=== PATIENT | male | born 1990 | race Caucasian/White ===

== ENCOUNTER 2017-01-14 19:02 | Inpatient (IN) | payer OTHER ==
[~2017-01-14] VITALS: Ht 177.8 cm; Wt 59.0 kg
[2017-01-14 20:00] VITALS: BP 117/76
--- NOTE | 2017-01-14 20:00 | NUR ---
INTAKE ASSESSMENT BP: 117/76, HR:73, RR:16, SpO2:95%, T:98, Pt reports right shoulder pain 5/10. Pt is in stable condition and able to be admitted on the unit. Unit protocols regarding medications and vital signs Q4H were explained. Pt verbalized understanding. Will continue admission upon arrival on the unit.
--- NOTE | 2017-01-14 21:00 | NUR ---
ADMISSION NOTE COWS: 1, CIWA:5 Pt arrived ambulatory from [facility] Intake to the third floor accompanied by a DECK SCALER at 2016. Pt is a 26 year old male patient admitted on 01/14/17 for Benzodiazepine and Heroin dependency. Pt is full code with allergy to Zicor. Pt reports a PMHx of anxiety, depression and left shoulder surgery in December 2014. He has been smoking cigarettes for 11 years. At the rate of one pack daily. He reports a seizure a few years ago but is unable to recall if the seizure was related to withdrawal. He reports having a PCP named Dr. Velasquez located in [place], [place]. He brought in home medications of Gabapentin 300 mg TID, Seroquel 100 mg at bedtime, and Ibuprofen 600 mg. Medications have been reconciled. He reports his last sobriety was for 70 days which started middle of October and ended 3 weeks ago. His last detox was at [facility] in [place] in October 2016. He reports living in sober living called [facility] in [facility]. He states that he is here for Opiate withdrawal and describes his current use as: 1.Xanax 2 mg PO x 4 days. Last dose: 01/13/17 2. Heroin IV 0.5 gram daily x 3 weeks Last dose: 0.5 gram IV on 01/14/17 He describes his withdrawal symptoms as sweating, muscle aches, diarrhea, nausea, chills and hot sweats. Upon assessment, pt is alert and oriented x4, calm and cooperative. Speech is clear and audible. Heart rate is regular. Pt denies chest pain or SOB. PERRLA, breathing even and unlabored, lung sounds clear. Abdomen is soft and non-distended, bowel sounds present in all quadrants. Last BM 01/13/17. Pt reports that BM is regular. Pt noted with right shoulder abrasion. No drainage or bleeding noted. Picture taken and placed in chart. MD made aware of admission. Pt oriented to room and unit. Pt is safe with bed locked in lowest position, side rails up x2 and call light within reach. Will monitor.
[2017-01-14 21:18] LABS: BASOPHILS # (AUTO) 0.1 K/uL (0.0-8.0); BASOPHILS % (AUTO) 0.8 % (0.0-2.0); EOSINOPHILS # (AUTO) 0.2 K/uL (0.0-0.7); EOSINOPHILS % (AUTO) 3.4 % (0.0-7.0); HEMATOCRIT 43.4 % (40-50); HEMOGLOBIN 14.6 G/DL (14.0-18.0); LYMPHOCYTES # (AUTO) 1.7 K/UL (0.8-4.8); LYMPHOCYTES % (AUTO) 25.8 % (20.5-51.5); MEAN CORPUSCULAR HGB CONC 34 g/dL (32.0-37.0); MEAN CORPUSCULAR VOLUME 89.3 FL (82.0-92.0); MONOCYTES # (AUTO) 0.3 K/UL (0.1-1.30); NEUTROPHILS # (AUTO) 4.2 K/UL (1.8-8.9); PLATELET COUNT (AUTO) 205 K/UL (150-450); RED BLOOD CELL COUNT(AUTO) 4.86 MIL/UL (4.7-6.1); WHITE BLOOD COUNT (AUTO) 6.5 K/UL (4.0-11.2)
[2017-01-14 21:37] LABS: ALANINE AMINOTRANSFERASE 19 U/L (16-63); ALKALINE PHOSPHATASE 83 U/L (50-136); AMYLASE 44 U/L (25-115); ASPARTATE AMINOTRANSFERASE 16 U/L (15-37); BILIRUBIN,TOTAL 0.8 mg/dL (0.2-1.0); CARBON DIOXIDE 32 mmol/L (21-32); CHLORIDE 101 mmol/L (98-107); GLUCOSE 88 mg/dL (74-106); LIPASE 79 U/L (73-393); MAGNESIUM 2.1 mg/dL (1.8-2.4); POTASSIUM 3.4 mmol/L (3.5-5.1); TOTAL PROTEIN, SERUM 7.5 g/dL (6.4-8.2); UREA NITROGEN, BLOOD 13 mg/dL (7-18)
[2017-01-14 21:39] LABS: ETHANOL < 3 MG/DL (0-0); THYROID STIMULATING HORMONE 1.403 mIU/mL (0.358-3.740)
[2017-01-15] VITALS: BP 102/64
[2017-01-15] MEDS ORDERED: QUET100T PO (01:00)
[2017-01-15] MEDS ORDERED: CITA40TA22 PO (01:00)
[2017-01-15] MEDS ORDERED: GABA-534 PO (01:00)
[2017-01-15] MEDS ORDERED: IBUP-1955 PO (01:00)
[2017-01-15 04:00] VITALS: BP 109/69
--- NOTE | 2017-01-15 04:00 | NUR ---
COWS DEFERRED 0400 COWS deferred d/t pt lying in bed with eyes closed noted to be asleep. Respirations 16, breathing even and unlabored. Safety measures in place. Will monitor.
--- NOTE | 2017-01-15 07:10 | NUR ---
END OF SHIFT Pt is a 26 year old male patient admitted on 01/14/17 for Benzodiazepine and Heroin dependency. Pt is full code with allergy to Zicor. Pt reports a PMHx of anxiety, depression and left shoulder surgery in December 2014. He did not receive or request PRN medications. Pt is compliant with care and treatment. He remains alert and oriented x4, breathing is even and unlabored. Safety measures in place. Endorsed to oncoming shift.
[2017-01-15 08:00] VITALS: BP 101/60
--- NOTE | 2017-01-15 08:20 | NUR ---
START OF SHIFT: RECEIVED PT A/O X 4. HE PRESENTS WITH ANXIOUS MOOD AND AFFECT.HE C/O BODY ACHES,SWEATS,CHILLS, SEVERE ANXIETY,RESTLESSNESS AND IRRITABILITY.COWS 13. PRN VALIUM GIVEN CIWA 7. WILL MONITOR EFFECTIVENESS OF PRN MED. ENCOURAGED REST AND FLUIDS TODAY. PPD PLANTED TO LFA. WILL CONTINUE TO MONITOR AND MANAGE S/S OF W/D.
--- NOTE | 2017-01-15 08:20 | NUR ---
PRN SUBUTEX 4MG SL GIVEN FOR COWS 13 .
[2017-01-15 08:34] LABS: *AMPHETAMINE, URINE NEGATIVE (NEGATIVE); *BARBITURATE, URINE NEGATIVE (NEGATIVE); *CANNABINOID, URINE NEGATIVE (NEGATIVE); *COCCAINE, URINE NEGATIVE (NEGATIVE); *OPIATE, URINE POSITIVE (NEGATIVE); *PHENCYCLIDINE SCREEN,URINE NEGATIVE (NEGATIVE)
--- NOTE | 2017-01-15 08:55 | NUR ---
PT STATES SUBUTEX WAS EFFECTIVE. COWS 7.
--- NOTE | 2017-01-15 09:40 | NUR ---
VALIUM 5MG PO PRN EFFECTIVE CIWA NOW 3.
[2017-01-15 12:00] VITALS: BP 100/61
[2017-01-15 16:00] VITALS: BP 105/65
--- NOTE | 2017-01-15 18:42 | NUR ---
END OF SHIFT: PT WAS STARTED ON MODIFIED ATIVAN AND SUBUTEX TAPER. HE WAS GIVEN PRN SUBUTEX AND VALIUM PRN THIS AM BEFORE TAPERS STARTED AND EFFECTIVE FOR C/O ANXIETY,CHILLS,BODY ACHES,SWEATS,AND RESTLESSNESS. LAST COWS 5 CIWA 3. HE WAS COMPLIANT WITH REST AND FLUIDS TODAY. WILL PASS SHIFT REPORT TO ONCOMING NIGHT NURSE.
--- NOTE | 2017-01-15 19:33 | NUR ---
Start of shift Report received from AM nurse. Patient is a 26 year old male admitted to [facility] on 01-14-17 for Benzo and Opiate Detox. HE is on a modified Subutex taper, and 4 day Ativan taper. His vital signs have remained stable. HE has moderate anxiety and history of depression. Denies current SI or HI. Patient up on unit and attending groups. He is a full code, on a regular diet, and has an allergy to Zicor. Stable condition noted at change of shift. Safety measures in place. Fall and seizure precautions, Last known seizure a few year ago. Side rails up x 2, Bed locked in lowest position, call light within reach of patient. Last CIWA3, COWS 7.
[2017-01-15 20:00] VITALS: BP 123/77
[2017-01-16] VITALS: BP 127/74
--- NOTE | 2017-01-16 04:06 | NUR ---
CIWA/COWS deferred. VITAL SIGNS refused Patient refused Vital signs at 0400. Patient resting comfortably in bed. Breathing even and unlabored. Respirations 16. CIWA/COWS deferred for sleep
--- NOTE | 2017-01-16 06:56 | NUR ---
End of Shift Note: Patient is a 26 year old male admitted to [facility] on 01-14-17 for Benzo and Opiate detox. Patient has been using Xanax 1 bar daily as well as Heroin IV 0.5g daily prior to admission. He is on fall and seizure precautions. Past medical history includes: Anxiety, Depression, and one known seizure a few years ago. He is a full code, on a regular diet, with allergy to Zicor. He is on a modified Subutex taper, and a 4 day Ativan taper. Mood stable. His vital signs at 2000: BP 123/77, P 98, R 22, SPO2 100% on RA, T 99.0. COWS 8, CIWA 7. Vital signs at 0000 BP 127/74, P 98, R 16, SPO2 99% on RA, CIWA 4, COWS 12. Patient tolerating diet and fluids. Slept a total of 3 hours. Intake 1595 ml output 1 BM, 2 voids. Safety measures in place. Bed Locked and in lowest position, call light within reach. Report to AM nurse.
[2017-01-16 07:16] LABS: MAGNESIUM 2.1 mg/dL (1.8-2.4); POTASSIUM 4.3 mmol/L (3.5-5.1)
[2017-01-16 08:00] VITALS: BP 118/82
--- NOTE | 2017-01-16 08:01 | NUR ---
START OF SHIFT: RECEIVED PT A/O X 4. HE PRESENTS WITH ANXIOUS MOOD AND AFFECT.HE C/O BODY ACHES,SWEATS,CHILLS, ANXIETY and RESTLESSNESS COWS 6 CIWA 4. HE STATES HE SLEPT TERRIBLE AND ONLY GOT 3 HRS OF SLEEP. OFFERED SUPPORT.ENCOURAGED INCREASED FLUIDS TO ASSIST IN FACILITATING DETOX PROCESS. WILL CONTINUE TO MONITOR AND MANAGE S/S OF W/D.
[2017-01-16 12:00] VITALS: BP 120/76
[2017-01-16 12:10] LABS: HEPATITIS B SURFACE AG Negative (Negative)
[2017-01-16 16:00] VITALS: BP 137/74
--- NOTE | 2017-01-16 19:06 | NUR ---
END OF SHIFT: PT ON ATIVAN AND SUBUTEX TAPER. HE C/O ANXIETY,BODY ACHES,SWEATS,AND RESTLESSNESS AND STATES HE DID NOT SLEEP LAST NIGHT. LAST COWS 5 CIWA 3. HE WAS COMPLIANT WITH MEDS AND ATTENDED GROUPS TODAY.WILL PASS SHIFT REPORT TO ONCOMING NIGHT NURSE.
--- NOTE | 2017-01-16 19:48 | NUR ---
Start of shift Report received from AM nurse. Patient is a 26 year old male admitted to Health system on 01-14-17 for Benzo and Opiate Detox. He remains on a modified Subutex taper, and 4 day Ativan taper. His vital signs have remained stable. He has history of anxiety and history of depression. Denies current SI or HI. Patient sleeping at change of shift. Received no PRN medication during day shift. Last COWS 5 CIWA 3. He is a full code, on a regular diet, and has an allergy to Zicor. Safety measures in place. Fall and seizure precautions in place.Side rails up x 2, Bed locked in lowest position, call light within reach of patient.
[2017-01-16 20:00] VITALS: BP 133/74
--- NOTE | 2017-01-16 21:08 | NUR ---
PRN MEDICATION Patient received Benadryl 50 mg Po at 2107 for c/o insomnia. Effect pending
--- NOTE | 2017-01-16 22:09 | NUR ---
Reassessment of Partient Patient reassessed one hour after PRN Benadryl 50 mg given for sleep. Patient still awake, but states he is beginning to feel tired. Will continue to monitor.
--- NOTE | 2017-01-17 | NUR ---
Vital signs refused Patient in bed with eyes closed at 0000 refused vital signs. Breathing even and unlabored. respirations 18. COWS/CIWA deferred for sleep
--- NOTE | 2017-01-17 04:00 | NUR ---
Vital signs refused Patient in bed with eyes closed at 0400. Patient refused vital signs. Breathing even and unlabored. respirations 16. COWS/CIWA deferred for sleep
--- NOTE | 2017-01-17 06:50 | NUR ---
End of Shift Note: Report given to AM nurse Patient is a 26 year old male admitted to [facility] on 01-14-17 for Benzo and Opiate detox. Patient has been using Xanax 1 bar daily as well as Heroin IV 0.5g daily prior to admission. He is on fall and seizure precautions. Past medical history includes: Anxiety, Depression, and one known seizure a few years ago. He is a full code, on a regular diet, with allergy to Zicor. He is on a modified Subutex taper, and a 4 day Ativan taper. Mood stable. Reports having a good day, speaking to his mother, and states it feels a weight was lifted. His vital signs at 1999: BP 133/74, P 92, R 18, SPO2 99% on RA, T 97.8 COWS 5, CIWA 6. Patient tolerating diet and fluids. Slept a total of 5 hours. Intake 1392ml output 2 voids[address] Safety measures in place. Bed Locked and in lowest position, call light within reach.
--- NOTE | 2017-01-17 07:29 | NUR ---
BEGINNING OF SHIFT Patient endorsement report received from night nurse nurse, all pertinent information discussed. patient is a 26 year old male with admitting Dx: Opiate/BZO dependence. Patient admitted on 01/14/2017, patient with past medical history: anxiety, depression and seizure ( few years ago) . patient currently under close observation ongoing, 4 day Ativan taper and modified Subutex as ordered. Patient with right shoulder abrasion. Per night nurse patient received PRN: Benadryl, medication effective, with last ciwa score of: 6 and last cow score of: 5. Patient received awake, alert and oriented x4, educated regarding plan of care for the day and medication regimen. Safety measures in place. call light kept with in reach. fall and seizure precautions observed and in place, will continue to monitor closely. safety measures in place.
[2017-01-17 08:23] VITALS: BP 127/74
[2017-01-17 13:45] VITALS: BP 120/65
[2017-01-17 17:17] VITALS: BP 101/71
--- NOTE | 2017-01-17 18:56 | NUR ---
END OF SHIFT Patient alert and oriented x4, vital signs were stable during shift. Patient compliant with therapeutic plan of care. Patient with admitting Dx: opiate/ETOH dependence. Patient continues on modified Subutex taper and 4 day Ativan taper as ordered, well tolerated no ASE noted. Encouraged adequate PO fluid intake as tolerated. 0900 assessment patient presented with: heart rate of 94, c/o chills, mild bone and joint aches, stomach cramps, tremors that can be felt but not seen, mild anxiety, barely sweating, and mild [id number] with cow score of: 7 and ciwa score of: 7; 1300 assessment patient presented with: heart rate of 85, c/o chills, tremors that can be felt but not seen, mild anxiety, barely sweating and mild agitation with cow score of: 4 and ciwa score of: 4; 1700 assessment patient presented with: heart rate of 97, c/o chills, tremors that can be felt but not seen, mild anxiety, barely sweating and mild agitation with cow score of: 4 and ciwa score of: 4 Patient denies any SI/HI. Encouraged to attend group therapies/sessions to learn new coping skills to prevent relapse. Patients safety measures in place. Call light kept with in each. Will continue to monitor closely. Patient endorsed to formula mixer nurse, all pertinent information discussed.
--- NOTE | 2017-01-17 19:30 | NUR ---
START OF SHIFT Pt is a 26 y/o male admitted for OPIATE/BENZO dependency.Patient alert and oriented x4, vital signs were stable during day shift,Pt is allergic to Zicor,full code status,regular diet.Pt received in a stable condition, has been compliant with therapeutic plan of care. Pt continues on modified Subutex taper and 4 day Ativan taper as ordered, well tolerated no A/R noted. PO fluids encouraged as tolerated.Last COWS score of: 4 and CIWA score of: 4 at 1600.Patient denies any SI/HI.All safety measures in place. Call light kept within each. Will continue to monitor closely.
[2017-01-17 20:00] VITALS: BP 113/75
--- NOTE | 2017-01-17 23:34 | NUR ---
PRN BENADRYL GIVEN ORDERED FOR C/O INSOMNIA.WILL MONITOR.
[2017-01-18] VITALS: BP 111/75
--- NOTE | 2017-01-18 00:34 | NUR ---
PRN F/U PRN EFFECTIVE.PT IS RESTING IN BED WITH EYES CLOSED,NO S/S DISTRESS NOTED.
[2017-01-18 04:00] VITALS: BP 102/72
--- NOTE | 2017-01-18 06:38 | NUR ---
END OF SHIFT Pt is a 26 y/o male admitted for OPIATE/BENZO dependency.Patient alert and oriented x4.Pt is allergic to Zicor,full code status,regular diet. Pt continues on modified Subutex taper and 4 day Ativan taper as ordered, well tolerated no A/R noted. PO fluids encouraged as tolerated.Last COWS score of: 2 and CIWA score of: 1 at 0400.PRN Benadryl was given with good effect.Pt slept 5 hrs,fluid intake was 500 mls,voided x 1,b/m x 1.Patient denies any SI/HI.All safety measures in place. Call light kept within each. Will continue to monitor closely.
--- NOTE | 2017-01-18 07:24 | NUR ---
BEGINNING OF SHIFT Patient endorsement report received from hogshead roller nurse, all pertinent information discussed. patient is a 26 year old male with admitting Dx: Opiate/BZO dependence. Patient admitted on 01/14/2017, patient with past medical history: anxiety, depression and seizure ( few years ago) . patient currently under close observation ongoing, 4 day Ativan taper and modified Subutex as ordered. Patient with right shoulder abrasion. Per hogshead roller patient received PRN: Benadryl, medication effective, patient slept for 5 hours, with last ciwa score of: 1 and last cow score of: 2. Patient received awake, alert and oriented x4, educated regarding plan of care for the day and medication regimen. Safety measures in place. call light kept with in reach. fall and seizure precautions observed and in place, will continue to monitor closely. safety measures in place.
[2017-01-18 08:07] VITALS: BP 114/65
[2017-01-18 13:04] VITALS: BP 123/79
[2017-01-18 17:15] VITALS: BP 104/65
--- NOTE | 2017-01-18 18:57 | NUR ---
START OF SHIFT NOTE: Patient is a 26 year old male admitted to [facility] for Benzodiazepines and Opioid dependence continue $ day Ativan and Modified Subutex Taper, tolerated wee without ASE. Patient remains compliant with therapy, medications, and diet regime. Patient reports allergy to Zicor, is on Full Code, Regular diet, Fall and Seizure Precautions. PMH: Anxiety, Depression, Seizures Hx "few years ago", Substance abuse. Patient reports Substance use: "Xanax 1 bar every day since 01/10/2017. Last used 1 bar on 01/13/17". "Heroin via IV 0.5 gram last three weeks. Last used 0.5 gram on 01/14/17". Patient reports recent hospitalizations/treatment Hx: "[facility]ia [facility] in October,". Upon endorsement, patient is alert and oriented x4, speech is soft and clear. Patient is cooperative. COWS 4, CIWA 4. Patient presented with anxiety, agitation, nervousness, tremors that can be felt, sweating, and restlessness. Patient reports pain level "0/10" by adult pain scale. Respirations are unlabored and even. Lung Sounds is clear bilaterally. Heart rate is regular, no murmur noted. Abdomen is soft and non-tender. Bowel Sounds are active. Skin is warm and dry to touch. Patient has healed Right shoulder abrasion. Patient attended activities group therapy. Encouraged fluid intake as tolerated. All needs met. Safety measures in the pace. Call light within reach, bed locked and the lowest position, padded rails up bilaterally. Will continue to monitor closely. Report received from day shift nurse. Addendum: 01/19/17 at 0518 by OZ SEGOVIA RN tolerated well without ASE
--- NOTE | 2017-01-18 18:57 | NUR ---
END OF SHIFT Patient alert and oriented x4, vital signs were stable during shift. Patient compliant with therapeutic plan of care. Patient with admitting Dx: opiate/ETOH dependence. Patient continues on modified Subutex taper and 4 day Ativan taper as ordered, well tolerated no ASE noted. Encouraged adequate PO fluid intake as tolerated. During shift patient administered one time dose of clonidine as per MD orders, medication was effective, patient received no PRN medications. 0900 assessment patient presented with: tremors that can be felt but not seen, and mild anxiety with cow score of: 2 and ciwa score of: 2; 1300 assessment patient presented with: anxiety with cow score of: 3 and ciwa score of: 4; 1700 assessment patient presented with: mild anxiety with cow score of: 1 and ciwa score of: 1. Patient denies any SI/HI. Encouraged to attend group therapies/sessions to learn new coping skills to prevent relapse. Patients safety measures in place. Call light kept with in each. Will continue to monitor closely. Patient endorsed to production supervisor off shift nurse, all pertinent information discussed.
[2017-01-18 20:00] VITALS: BP 123/80
[2017-01-19] VITALS: BP 119/71
[2017-01-19 04:00] VITALS: BP 102/63
--- NOTE | 2017-01-19 07:10 | NUR ---
END OF SHIFT NOTE: Patient is a 26 year old male admitted to [facility] for Benzodiazepines and Opioid dependence continue 4 day Ativan and Modified Subutex Taper, tolerated well without ASE. Patient remains compliant with therapy, medications, and diet regime. Patient reports allergy to Zicor, is on Full Code, Regular diet, Fall and Seizure Precautions. PMH: Anxiety, Depression, Seizures Hx "few years ago", Substance abuse. Patient reports Substance use: "Xanax 1 bar every day since 01/10/2017. Last used 1 bar on 01/13/17". "Heroin via IV 0.5 gram last three weeks. Last used 0.5 gram on 01/14/17". Patient reports recent [facility] H[facility]. COWS 2 @0400, CIWA 2 @0400. Patient presented with anxiety, agitation, nervousness, tremors that can be felt, sweating, and restlessness. VS @ 0400: T: 98.1, BP: 102/63, HR:69, RR:16, RA O2Sat: 97%. Pain level: "0/10". Respirations are unlabored and even. Skin is warm and dry to touch. Patient has healed Right shoulder abrasion. Patient attended activities group therapy. Encouraged fluid intake as tolerated. No PRN Medications administrated during my shift. Patient slept 6 hours, intake 1,500 ml, voided x2. All needs met. Safety measures on place. Call light within reach, bed in lowest position and locked, padded rails up bilaterally. Patient endorsed to day shift nurse.
--- NOTE | 2017-01-19 07:35 | NUR ---
BEGINNING OF SHIFT Patient endorsement report received from emergency department manager nurse, all pertinent information discussed. patient is a 26 year old male with admitting Dx: Opiate/BZO dependence. Patient admitted on 01/14/2017, patient with past medical history: anxiety, depression and seizure ( few years ago) . patient currently under close observation ongoing, 4 day Ativan taper and modified Subutex as ordered. Patient with right shoulder abrasion. Per emergency department manager patient received no PRN medications. patient slept for 6 hours, with last ciwa score of: 2 and last cow score of: 2. Patient received awake, alert and oriented x4, educated regarding plan of care for the day and medication regimen. Safety measures in place. call light kept with in reach. fall and seizure precautions observed and in place, will continue to monitor closely. safety measures in place.
[2017-01-19 08:34] VITALS: BP 96/67
[2017-01-19 14:00] VITALS: BP 131/74
[2017-01-19] MEDS ORDERED: IBUP-1953 PO (16:48)
[2017-01-19] MEDS ORDERED: HYDR-3895 PO (16:48)
[2017-01-19] MEDS ORDERED: BACL20TA PO (16:48)
[2017-01-19] MEDS ORDERED: DICY20TA28 PO (16:48)
[2017-01-19] MEDS ORDERED: CLON0.1T14 PO (16:48)
[2017-01-19] MEDS ORDERED: GABA-534 PO (16:48)
[2017-01-19] MEDS ORDERED: DIPH50CA37 PO (16:48)
[2017-01-19 17:23] VITALS: BP 128/71
--- NOTE | 2017-01-19 18:55 | NUR ---
END OF SHIFT Patient alert and oriented x4, vital signs were stable during shift. Patient compliant with therapeutic plan of care. Patient with admitting Dx: opiate/ETOH dependence. Patient continues on modified Subutex taper and 4 day Ativan taper as ordered, well tolerated no ASE noted, patient completed tapers during shift, last administration of detox medications were administered this morning, patient is scheduled to be discharged to [facility] tomorrow morning, noted self motivated towards sobriety. Encouraged adequate PO fluid intake as tolerated. 0900 assessment patient presented with: mild bone and joint aches, and mild anxiety with cow score of: 2 and ciwa score of: 1; 1300 assessment presented with: mild bone and joint aches, and mild anxiety with cow score of:2 and ciwa score of: 1; 1700 assessment patient presented with: mild anxiety with cow score of: 1 and ciwa score of: 1. Patient denies any SI/HI. Encouraged to attend group therapies/sessions to learn new coping skills to prevent relapse. Patients safety measures in place. Call light kept with in each. Will continue to monitor closely. Patient endorsed to date night sitter nurse, all pertinent information discussed.
[2017-01-19 20:00] VITALS: BP 112/73
--- NOTE | 2017-01-19 20:00 | NUR ---
Start of shift Px Received 26y/o male, alert and oriented x4, Patient compliant with therapeutic plan of care. Patient admitted for opiate/ETOH dependence. Patient is scheduled to be discharged to [facility] [place] tomorrow morning, 01/20/2017. Noted self motivated towards sobriety. Px complained of arms and legs pain 5/10. Encouraged adequate PO fluid intake as tolerated. COWS 2 and CIWA 2 at 2000H. Patients safety measures in place. Call light kept within reach. Will continue to monitor.
--- NOTE | 2017-01-19 21:40 | NUR ---
PRN Ibuprofen Px complained of arms and legs pain 5/10. Ibuprofen 400mg 1 tab given PO as PRN med. Will continue to monitor.
--- NOTE | 2017-01-19 22:40 | NUR ---
Pain reassessment Px's pain on arms and legs decreased to 0/10 after an hour. Ibuprofen 400mg 1 tab was effective. Will continue to monitor.
[2017-01-20] VITALS: BP 100/52
[2017-01-20 04:00] VITALS: BP 102/58
--- NOTE | 2017-01-20 07:00 | NUR ---
End of shift Px is 26y/o male, alert and oriented x4, Patient compliant with therapeutic plan of care. Patient admitted for opiate/ETOH dependence. Patient is scheduled to be discharged to [facility] today, 01/20/2017. Noted self motivated towards sobriety. Px complained of arms and legs pain 5/10. Ibuprofen 400mg 1 tab given PO as PRN med. Pain decreased to 0/10 after an hour. Encouraged adequate PO fluid intake as tolerated. COWS 1 and CIWA 1 at 0400H. Oral intake of 1700 ml, voided 4x, no BM. Slept for 6hrs. Patients safety measures in place. Call light kept within reach. Will continue to monitor.
[2017-01-20 08:23] VITALS: BP 98/62
[2017-01-20 09:00] VITALS: BP 98/62
--- NOTE | 2017-01-20 09:35 | NUR ---
Discharge Note Pt is discharged per ambulation to waiting private transportation for transportation to residential treatment facility. Pt is in stable condition with VS WNL. Pt is A/O x4, calm and cooperative. Pt makes his needs known and has clear thought speech process and responds appropriately. Pt denies HI/SI, A/VH or any associated psychiatric symptoms. Pt educated on discharge instructions and medications. Pt provided education on indication, reasoning and timing of medication. Pt provided education r/t side effects and needs to contact a professional. Pt signed all paperwork. All personal belongings signed and returned. Home medication returned and signed for by pt. Pt denies any further comments, questions or concerns. made aware of pt's discharge.
== END 2017-01-20 09:35 | disposition other institution (70) | DRG 895 ==
LOC: SRC 19:19
PROVIDERS: ADMIT Internal Medicine; ATTEND Internal Medicine
PROC: HZ2ZZZZ Detoxification Services for Substance Abuse Treatment (ICD-10-PCS; principal; 2017-01-14)
PROC: HZ41ZZZ Group Counseling for Substance Abuse Treatment, Behavioral (ICD-10-PCS; 2017-01-16)
PROC: HZ31ZZZ Individual Counseling for Substance Abuse Treatment, Behavioral (ICD-10-PCS; 2017-01-17)
DX: F13.230 Sedative, hypnotic or anxiolytic dependence with withdrawal, uncomplicated (principal); F33.2 Major depressive disorder, recurrent severe without psychotic features; F41.9 Anxiety disorder, unspecified; F11.23 Opioid dependence with withdrawal; Z59.0 Homelessness; G47.00 Insomnia, unspecified; E87.6 Hypokalemia; F17.210 Nicotine dependence, cigarettes, uncomplicated; Z79.899 Other long term (current) drug therapy; K59.03 Drug induced constipation; Z86.69 Personal history of other diseases of the nervous system and sense organs
CPT/HCPCS: 36415; 70030-TC; 80307; 80361; 83690; 83735; 84443; 85025; 86580; 86592; 86705; 86803; 87340; 87806; 93005; A4663; G0480; Q0163

== ENCOUNTER 2017-02-20 14:57 | Inpatient (IN) | payer OTHER ==
[~2017-02-20] VITALS: Ht 177.8 cm; Wt 62.6 kg
[~2017-02-20 14:57] MED LIST: BACL20TA PO; CITA40TA22 PO; CLON0.1T14 PO; DICY20TA28 PO; DIPH50CA37 PO; GABA-534 PO; HYDR-3895 PO; IBUP-1953 PO; QUET100T PO
--- NOTE | 2017-02-20 17:20 | NUR ---
PRE-ASSESSMENT Patient is A/O x4, in stable condition. V/S are WNL 111/69, HR 84, SpO2 is 97% room air, RR 16 even and unlabored. Pt is able to answer questions, speech is clear. Pt reports he is admitted for heroin withdrawals, pt reports using less than 1/2g daily for the past 2 weeks, pt also reports taking Xanax but states "I don't know how much, I took some on/off for the past 2 weeks." Allergies to Ceclor, pt admission to be continued when pt is on the unit.
[2017-02-20 17:30] VITALS: BP 111/69
--- NOTE | 2017-02-20 17:30 | NUR ---
ADMISSION NOTE Pt is a 26 year old male, admitted to [facility] for opiate and benzo withdrawals. Pt awake, alert, oriented x 4, gait steady, pt is ambulatory without assistance. Pt weighs 138lbs and his height is 5'10. Denies any history of seizures. Pt is primary source of information, information consistent, speech coherent. Pt did not bring home medications but reports taking Celexa 40 mg QD, Gabapentin 800mg QID, Wellbutrin 100mg QID, and Seroquel 100mg HS. Pt refused FLU/ PNA Vaccinations stating that he will receive it somewhere else. Pt reports his primary care physician is Dr. Velasquez. Pt requested to be full code, regular diet on fall and seizure precautions, Pt denies any food allergies but states he is allergic to Cefaclor. Pt reports smoking 1 pack of cigarettes daily. Pt was recently discharged from [facility] in Jan 2017, qualifies for MRSA swab. Pts initial vital signs are BP: 111/69, Temp: 98.3, Pulse: 84 SPO2: 97% room air, RR:16 and states that he has 6/10 muscle aches. Pts initial COWS is 4, and CIWA was a 3. Pt reports PMH of Anxiety, Depression, insomnia. Skin is intact but multiple track singh notes, small scab noted on left hand. Pt denies any suicidal or homicidal ideations. Patient oriented to unit, room, equipment, shown how to use call light, provided returned demonstration. Fall precautions and seizure in place. Side rails up x2, call light within reach, bed locked in low position. Substance use Hx: Heroin: 1/2 gram for the past 2 weeks, last used 02/19/17 at 2200 Xanax: unknown amount on/off last 2 weeks, does not recall when last use was.
[2017-02-20] MEDS ORDERED: BUPRENORPHINE HCL 2 MG TAB.SUBL SL PRN (17:45)
[2017-02-20] MEDS ORDERED: HYDROXYZINE PAMOATE 25 MG CAPSULE PO PRN (17:45)
[2017-02-20] MEDS ORDERED: DICYCLOMINE HCL 20 MG TABLET PO PRN (17:45)
[2017-02-20] MEDS ORDERED: IBUPROFEN 600 MG TABLET PO PRN (17:45)
[2017-02-20] MEDS ORDERED: ACETAMINOPHEN 325 MG TABLET PO PRN (17:45)
[2017-02-20] MEDS ORDERED: LORAZEPAM 2 MG/1 ML VIAL IM PRN (17:45)
[2017-02-20] MEDS ORDERED: MIRALAX 17 GM POWD.PACK PO PRN (17:45)
[2017-02-20] MEDS ORDERED: LOPERAMIDE HCL 2 MG CAPSULE PO PRN ×2 (17:45)
[2017-02-20] MEDS ORDERED: MAG HYDROX/AL HYDROX/SIMETH 30 ML LIQUID UDC PO PRN (17:45)
[2017-02-20] MEDS ORDERED: LORAZEPAM 1 MG TABLET PO PRN ×2 (17:45)
[2017-02-20] MEDS ORDERED: CLONIDINE HCL 0.1 MG TABLET PO PRN (17:45)
[2017-02-20] MEDS ORDERED: diphenhydrAMINE 50 MG CAPSULE PO PRN (17:45)
[2017-02-20] MEDS ORDERED: MAGNESIUM HYDROXIDE 30 ML LIQUID UDC PO PRN (17:45)
[2017-02-20] MEDS ORDERED: ONDANSETRON 4 MG/2 ML VIAL IM PRN (17:45)
[2017-02-20] MEDS ORDERED: ONDANSETRON ODT 4 MG TAB.RAPDIS SL PRN (17:45)
[2017-02-20 18:20] LABS: *AMPHETAMINE, URINE NEGATIVE (NEGATIVE); *BARBITURATE, URINE NEGATIVE (NEGATIVE); *CANNABINOID, URINE NEGATIVE (NEGATIVE); *COCCAINE, URINE NEGATIVE (NEGATIVE); *OPIATE, URINE POSITIVE (NEGATIVE); *PHENCYCLIDINE SCREEN,URINE NEGATIVE (NEGATIVE)
[2017-02-20] MEDS ORDERED: BUPR100T5 PO (18:48)
--- NOTE | 2017-02-20 18:56 | NUR ---
END OF SHIFT Endorsed patient to night nurse. Pt remains stable throughout shift. No medications administered. Most recent COWS is 4 and CIWA 3. Pt to begin tapers tonight, if withdrawal symptoms are present. Pt UDS is only positive for opiates, MD notified. Pt encouraged to attend groups and activities and socialize with peers. Pt education provided on smoking cessation and nonpharmacological methods to increase comfort. Endorsed to night nurse to complete MRSA swab. Safety measures are in place, night nurse to continue monitoring.
--- NOTE | 2017-02-20 19:15 | NUR ---
Start of Shift Note: Patient is a 26 y/o female admitted today for Opiate and Benzo dependence. Patient reported using Heroin 0.5 grams daily for 2 weeks and Xanax PO in an unknown amount. Patient has PMHx of Anxiety, Depression, Insomnia and hx of left shoulder surgery. No seizure history noted. Patient is on a regular diet with allergies to Ceclor. Full Code status noted. Patient placed on an Ativan and Subutex taper to be started tonight. Last COWS 6 CIWA 5. Patient is alert & oriented x4. No shortness of breath noted. Respiration even & unlabored. Abdomen soft & non-distended. Patient presented with complaints of sweating chills, restlessness, 7/10 generalized body aches, stuffy nose, stomach cramps, mild headache & anxiety. Slight hand tremors noted. Pt denies any hallucinations. Safety precautions are in place. Bed locked in lowest position. Both side rails up. Call light within pts reach. Will continue to monitor patient.
[2017-02-20] MEDS: LORAZEPAM 1 MG TABLET PO SCH ×2 (19:45→22:13)
[2017-02-20 20:00] VITALS: BP 114/73
[2017-02-20] MEDS: BUPRENORPHINE HCL 2 MG TAB.SUBL SL SCH ×2 (20:00→22:13)
[2017-02-20] MEDS: GABAPENTIN 400 MG CAPSULE PO SCH (20:00)
[2017-02-20] MEDS: METHOCARBAMOL 750 MG TABLET PO PRN (20:00)
--- NOTE | 2017-02-20 20:00 | NUR ---
PRN Robaxin Patient complaining of 7/10 generalized body aches. PRN Robaxin administered as ordered. Will continue to monitor for effectiveness of medication.
--- NOTE | 2017-02-20 21:00 | NUR ---
PRn Reassessment Patient verbalized slight relief from body aches. 4/10 pain noted at this time. will continue to monitor patient.
[2017-02-20 21:15] LABS: BASOPHILS # (AUTO) 0.1 K/uL (0.0-8.0); BASOPHILS % (AUTO) 0.9 % (0.0-2.0); EOSINOPHILS # (AUTO) 0.3 K/uL (0.0-0.7); EOSINOPHILS % (AUTO) 4.2 % (0.0-7.0); HEMATOCRIT 43.7 % (40-50); HEMOGLOBIN 14.7 G/DL (14.0-18.0); LYMPHOCYTES # (AUTO) 1.5 K/UL (0.8-4.8); LYMPHOCYTES % (AUTO) 22.6 % (20.5-51.5); MEAN CORPUSCULAR HEMOGLOBIN 29.8 UUG (27.0-31.0); MEAN CORPUSCULAR HGB CONC 34 g/dL (32.0-37.0); MEAN CORPUSCULAR VOLUME 88.2 FL (82.0-92.0); MONOCYTES # (AUTO) 0.5 K/UL (0.1-1.30); MONOCYTES % (AUTO) 7.7 % (0.0-11.0); NEUTROPHILS # (AUTO) 4.3 K/UL (1.8-8.9); NEUTROPHILS % (AUTO) 64.6 % (38.5-71.5); PLATELET COUNT (AUTO) 188 K/UL (150-450); RED BLOOD CELL COUNT(AUTO) 4.95 MIL/UL (4.7-6.1); WHITE BLOOD COUNT (AUTO) 6.7 K/UL (4.0-11.2)
[2017-02-20 21:22] LABS: ETHANOL < 3 MG/DL (0-0)
[2017-02-20 21:36] LABS: ALANINE AMINOTRANSFERASE 21 U/L (16-63); ALKALINE PHOSPHATASE 96 U/L (50-136); ASPARTATE AMINOTRANSFERASE 16 U/L (15-37); BILIRUBIN,TOTAL 0.9 mg/dL (0.2-1.0); CARBON DIOXIDE 32 mmol/L (21-32); CHLORIDE 103 mmol/L (98-107); CREATININE 1.1 mg/dL (0.6-1.3); GLUCOSE 71 mg/dL (74-106); MAGNESIUM 2.2 mg/dL (1.8-2.4); POTASSIUM 4.2 mmol/L (3.5-5.1); TOTAL PROTEIN, SERUM 7.5 g/dL (6.4-8.2); UREA NITROGEN, BLOOD 12 mg/dL (7-18)
[2017-02-21] VITALS: BP 114/73
[2017-02-21 04:00] VITALS: BP 136/88
--- NOTE | 2017-02-21 07:05 | NUR ---
Start of Shift Note: Patient is a 26 y/o male admitted yesterday for Opiate and Benzo dependence. Patient reported using Heroin 0.5 grams daily for 2 weeks and Xanax PO in an unknown amount. Patient has PMHx of Anxiety, Depression, Insomnia and hx of left shoulder surgery. No seizure history noted. Patient is on a regular diet with allergies to Ceclor. Full Code status noted. Patient started on an Ativan and Subutex taper last night and tolerating well. Last COWS 5 CIWA 4. Pt reported that taper medications were effective in controlling s/s of withdrawal. Patient received PRN Robaxin for body aches and Benadryl for sleep during my shift, both medications were effective. Patient remains stable and vitals remains WNL. Pt slept for a total of 3 hours.Pt= consumed 350ml of fluids. Pt voided 1x with no bowel movement. Encourage pt to increase fluid intake. All needs attended & met. Safety measures in place. Will endorse pt to day shift nurse. Addendum: 02/21/17 at 0706 by TOMY HELTON RN ERROR: Supposed to be End of Shift Note
--- NOTE | 2017-02-21 07:56 | NUR ---
Start of shift note; Received report from night nurse. Patient is a 26 year old male admitted on 02/20/17 for Opiate/Benzodiazepine dependence. Patient was placed on a 5 day Ativan and 5 day Subutex taper. Patient reported history of anxiety, depression, insomnia, left shoulder surgery.Patient's last COWS is 5 and CIWA 4. Patient slept for 3 hours. Patient is on fall and seizure precaution. Bed in lowest position, call light within reach. All safety measures secured. Will continue to monitor patient.
[2017-02-21 08:00] VITALS: BP 109/64
[2017-02-21] MEDS: LORAZEPAM 1 MG TABLET PO SCH ×3 (08:28→20:50)
[2017-02-21] MEDS: BUPRENORPHINE HCL 2 MG TAB.SUBL SL SCH ×3 (08:28→20:50)
[2017-02-21] MEDS: GABAPENTIN 400 MG CAPSULE PO SCH ×3 (08:28→20:50)
[2017-02-21] MEDS ORDERED: TUBERCULIN,PURIF.PROT.DERIV. 5 TU/0.1 ML TEST ID ONE (09:00)
[2017-02-21] MEDS: buPROPion SR 100 MG TABLET.SA PO SCH (10:33)
[2017-02-21] MEDS: CITALOPRAM 20 MG TABLET PO SCH (10:33)
--- NOTE | 2017-02-21 10:44 | NUR ---
Psychiatrist communication; Dr. Chavis on unit. MD reconciled patient's psych home medications Wellbutrin, Celexa and Seroquel. Medications given as per MD order.
[2017-02-21 12:00] VITALS: BP 119/68
[2017-02-21 16:00] VITALS: BP 130/80
--- NOTE | 2017-02-21 18:15 | NUR ---
End of shift note; Patient is AOX4. Patient is a 26 year old male admitted on 02/20/17 for Opiate/Benzodiazepine dependence. Patient was placed on a 5 day Ativan and 5 day Subutex taper. Patient reported history of anxiety, depression, insomnia, left shoulder surgery.Patient's last COWS is 5 and CIWA 5. Patient is on fall and seizure precaution. Bed in lowest position, call light within reach. All safety measures secured. Patient remained compliant with treatment plan and medication regime. Medications were effective in reducing withdrawal symptoms. Met all needs.
--- NOTE | 2017-02-21 19:15 | NUR ---
Start of Shift Note: Patient is a 26 y/o male admitted yesterday 02/20/17 for Opiate and Benzo dependence. Patient reported using Heroin 0.5 grams daily for 2 weeks and Xanax PO in an unknown amount. Patient has PMHx of Anxiety, Depression, Insomnia and hx of left shoulder surgery. No seizure history noted. Patient is on a regular diet with allergies to Ceclor. Full Code status noted. Patient is on an Ativan and Subutex taper and tolerating well. Last COWS 5 CIWA 5. Patient is alert & oriented x4. No shortness of breath noted. Respiration even & unlabored. Abdomen soft & non-distended. Patient presented with complaints of sweating chills, restlessness, 6/10 generalized body aches, stuffy nose, stomach cramps, & anxiety. Slight hand tremors noted. Pt denies any hallucinations. Safety precautions are in place. Bed locked in lowest position. Both side rails up. Call light within pts reach. Will continue to monitor patient.
[2017-02-21 20:00] VITALS: BP 143/87
[2017-02-21] MEDS: QUETIAPINE FUMARATE 100 MG TABLET PO SCH (20:49)
[2017-02-21] MEDS: METHOCARBAMOL 750 MG TABLET PO PRN (20:49)
--- NOTE | 2017-02-21 20:49 | NUR ---
PRN Robaxin Patient complaining of 5/10 generalized body aches. Non-pharmacological intervention provided but not effective. PRN Robaxin administered as ordered. Will monitor for effectiveness of medication.
--- NOTE | 2017-02-21 21:49 | NUR ---
PRN Reassessment PRN medication effective. Patient verbalized relief from body aches. Will continue to monitor patient.
[2017-02-22] VITALS: BP 122/72
--- NOTE | 2017-02-22 07:04 | NUR ---
End of Shift Note: Patient had an uneventful night. Pt continues his Subutex and Ativan taper and tolerating well. Last COWS 6 CIWA 3. Pt reported taper medications were effective in controlling s/s of withdrawal. Patient received PRN Robaxin for body aches and was effective effective. Patient remains stable and vitals remains WNL. Pt slept for a total of 5 hours. Pt consumed 1950ml of fluids. Pt voided 2x with no bowel movement. Encourage pt to increase fluid intake. All needs attended & met. Safety measures in place. Will endorse pt to day shift nurse.
[2017-02-22 07:06] LABS: HEPATITIS B SURFACE AG Negative (Negative)
--- NOTE | 2017-02-22 07:41 | NUR ---
Start of shift note; Received report from night nurse. Patient is a 26 year old male admitted on 02/20/17 for Opiate/Benzodiazepine dependence. Patient was placed on a 5 day Ativan and 5 day Subutex taper. Patient reported history of anxiety, depression, insomnia, left shoulder surgery.Patient's last COWS is 6 and CIWA 3. Patient slept for 5 hours. Patient is on fall and seizure precaution. Bed in lowest position, call light within reach. All safety measures secured. Will continue to monitor patient.
[2017-02-22 08:00] VITALS: BP 116/74
[2017-02-22] MEDS: GABAPENTIN 400 MG CAPSULE PO SCH ×3 (08:42→21:25)
[2017-02-22] MEDS: LORAZEPAM 1 MG TABLET PO SCH ×3 (08:42→21:25)
[2017-02-22] MEDS: CITALOPRAM 20 MG TABLET PO SCH (08:42)
[2017-02-22] MEDS: buPROPion SR 100 MG TABLET.SA PO SCH (08:43)
[2017-02-22] MEDS ORDERED: BUPRENORPHINE HCL 2 MG TAB.SUBL SL SCH (09:00)
--- NOTE | 2017-02-22 09:35 | NUR ---
PRN medication; Patient is complaining of shoulder pain rated 5/10 on pain scale. PRN Tylenol given for pain. Will continue to monitor patient for effectiveness of medication.
--- NOTE | 2017-02-22 10:00 | NUR ---
Activity Group Note: Attempt made for group participation. Client refused. Will attempt when time permits.
--- NOTE | 2017-02-22 10:12 | NUR ---
Endorsement given; Patient is AOX4. Detailed report given to covering nurse. Met all needs.
--- NOTE | 2017-02-22 10:13 | NUR ---
ASSUMED CARE assumed care for patient, all pertinent information discussed. safety measures in place. will continue to monitor closely.
--- NOTE | 2017-02-22 10:35 | NUR ---
TYLENOL REASSESSMENT Patient reports medication effective, reports pain level of 0/10 will continue to monitor.
[2017-02-22 13:04] VITALS: BP 98/62
--- NOTE | 2017-02-22 13:45 | NUR ---
Activity Group Note: Attempt made for group participation. Client refused. Will attempt again when time permits.
[2017-02-22] MEDS: BACLOFEN 10 MG TABLET PO SCH ×2 (14:01→21:25)
[2017-02-22] MEDS: BUPRENORPHINE HCL 2 MG TAB.SUBL SL SCH ×2 (14:02→21:26)
--- NOTE | 2017-02-22 14:17 | NUR ---
Therapist prompted client about group times. Client stated he will attend all groups today.
[2017-02-22 17:12] VITALS: BP 128/78
--- NOTE | 2017-02-22 19:06 | NUR ---
BEGINNING OF SHIFT Patient alert and oriented x4, vital signs were stable during shift. Patient compliant with therapeutic plan of care. Patients continues under close observation. patient with admitting Dx: opiate/bzo dependence. currently with ongoing taper of Ativan/ Subutex 5 day, currently on day 3 of taper, well tolerated, no ASE noted, continues under close observation. 1300 assessment patient present with: heart rate of 91, c/o chills, mild bone and joint aches, nasal stuffiness, tremors that can be felt but NOT seen, mild anxiety and barely sweating with cow score of: 6 and ciwa score of: 3; 1700 assessment patient presented with: heart rate of 93, c/o chills, mild bone and joint aches, nasal stuffiness, tremors that can be felt but not seen, mild anxiety and barely sweating with cow score of: 6 and ciwa score of: 3. Patient encouraged adequate PO fluid intake as tolerated. Patient encouraged to attend group therapies/sessions to learn new coping skills to prevent relapse. Denies SI/HI. safety measures in place. call light kept with in reach, patient endorsed to shift lab technician nurse, all pertinent information discussed. will continue to monitor.
--- NOTE | 2017-02-22 19:15 | NUR ---
START OF SHIFT Received 26 year old male patient admitted on 02/20/17 for Opiate and Benzodiazepine dependency. Pt is full code with allergy to ceclor. He reports a PMHx of anxiety, depression, insomnia and left shoulder surgery. Pt reports using Heroin less than gram daily for 2 weeks. Last dose was gram on 02/19/17. And Xanax of unknown amount daily for 2 weeks. Pt denies history of seizures. He is receiving a 5 day Ativan and 5 day Subutex taper, currently on day 3/5 and tolerating well. Per endorsement, pt did not receive or request PRN medications. Pt is alert and oriented x4, breathing is even and unlabored. Safety measures in place. Will monitor.
[2017-02-22 20:00] VITALS: BP 126/71
[2017-02-22] MEDS: CLONIDINE HCL 0.1 MG TABLET PO SCH (21:25)
[2017-02-22] MEDS: QUETIAPINE FUMARATE 100 MG TABLET PO SCH (21:25)
[2017-02-23] VITALS: BP 115/65
--- NOTE | 2017-02-23 | NUR ---
COWS/CIWA DEFERRED Pt lying in bed with eyes closed noted to be asleep. Respirations 16, breathing even and unlabored. Safety measures in place. Will monitor.
--- NOTE | 2017-02-23 04:00 | NUR ---
VITALS REFUSED, COWS/CIWA DEFERRED 0400 vitals refused. COWS and CIWA deferred d/t pt lying in bed with eyes closed noted to be asleep. Respirations 16, breathing even and unlabored. Safety measures in place. Will monitor.
--- NOTE | 2017-02-23 07:15 | NUR ---
END OF SHIFT Pt is a 26 year old male patient admitted on 02/20/17 for Opiate and Benzodiazepine dependency. Pt is full code with allergy to Ceclor. He reports a PMHx of anxiety, depression, insomnia and left shoulder surgery. He continues on a 5 day Ativan and 5 day Subutex taper, currently on day 4/5 and tolerating well. He did not receive or request PRN medications. He slept a total of 5 hrs, Intake: 2600mL, Void: x3, BM:1, COWS:7, CIWA:4. Pt remains alert and oriented x4, breathing is even and unlabored. Safety measures in place. Endorsed to oncoming shift.
--- NOTE | 2017-02-23 07:39 | NUR ---
BEGINNING OF SHIFT Patient endorsement report received from maintenance mechanic 2nd shift nurse, all pertinent information discussed. Patient is a 32 year old Male admitted on: 02/20/2017 with admitting Dx:Opiate /BZO dependence, And substance use of:sonatas. Patient currently under close observation, continues on 5 day Ativan and 5 day Subutex taper as ordered, and is scheduled to begin day 4 of taper. Per maintenance mechanic 2nd shift patient slept for 5 hours, received no PRN medications. Patient with last ciwa score of: 4 and last cow score of: 7. Patient received awake, alert and oriented x4, patient educated regarding plan of care and medication regimen for the day with good verbal understanding. Safety measures in place. call light kept with in reach, will continue to monitor.
[2017-02-23] MEDS: CLONIDINE HCL 0.1 MG TABLET PO SCH ×3 (09:00→22:21)
[2017-02-23 09:02] VITALS: BP 118/66
[2017-02-23] MEDS: BACLOFEN 10 MG TABLET PO SCH ×2 (09:03→14:01)
[2017-02-23] MEDS: LORAZEPAM 1 MG TABLET PO SCH ×2 (09:03→22:20)
[2017-02-23] MEDS: GABAPENTIN 400 MG CAPSULE PO SCH ×2 (09:03→14:01)
[2017-02-23] MEDS: CITALOPRAM 20 MG TABLET PO SCH (09:03)
[2017-02-23] MEDS: buPROPion SR 100 MG TABLET.SA PO SCH (09:03)
[2017-02-23] MEDS: BUPRENORPHINE HCL 2 MG TAB.SUBL SL SCH ×3 (09:04→22:21)
--- NOTE | 2017-02-23 10:41 | NUR ---
Therapist prompted client about group times. Client stated she will attend all groups today.
[2017-02-23 13:56] VITALS: BP 124/74
[2017-02-23] MEDS: GABAPENTIN 300 MG CAPSULE PO SCH ×2 (14:18→22:20)
[2017-02-23] MEDS: BACLOFEN 20 MG TABLET PO SCH ×2 (14:18→22:20)
--- NOTE | 2017-02-23 14:19 | NUR ---
GABAPENTIN AND BACLOFEN 1500 DOSE HELD MD Input new orders for increase in gabapentin and increase in baclofen. 1500 dose were held due to administration of previous order for baclofen and gabapentin at 1401. is aware.
[2017-02-23 17:00] VITALS: BP 128/83
--- NOTE | 2017-02-23 18:58 | NUR ---
END OF SHIFT Patient alert and oriented x4, vital signs were stable during shift. Patient compliant with therapeutic plan of care. Patients continues under close observation. patient with admitting Dx: opiate/bzo dependence. currently with ongoing taper of Ativan/ Subutex 5 day, currently on day 4 of taper, well tolerated, no ASE noted, continues under close observation. 0900 assessment patient presented with: tremors that can be felt but not seen, barely sweating, stomach cramps, mild anxiety, c/o chills, mild bone and joint aches, moist eyes with ciwa score of: 3 and cow score of: 5; 1300 assessment patient presented with: tremors that can be felt but not seen, barely sweating, mild anxiety, c/o chills, mild bone and joint aches and heart rate of: 81 with cow score of: 5 and ciwa score of: 3. 1700 assessment patient presented with: tremors that can be felt but not seen, barely sweating, mild anxiety, c/o chills, mild bone and joint aches and heart rate of: 88 with cow score of: 5 and ciwa score of: 3. Patient encouraged adequate PO fluid intake as tolerated. Patient encouraged to attend group therapies/sessions to learn new coping skills to prevent relapse. Denies SI/HI. safety measures in place. call light kept with in reach, patient endorsed to folder inspector nurse, all pertinent information discussed. will continue to monitor.
--- NOTE | 2017-02-23 19:15 | NUR ---
START OF SHIFT Received 26 year old male patient admitted on 02/20/17 for Opiate and Benzodiazepine dependency. Pt is full code with allergy to ceclor. He reports a PMHx of anxiety, depression, insomnia and left shoulder surgery. Pt reports using Heroin less than gram daily for 2 weeks. Last dose was gram on 02/19/17. And Xanax of unknown amount daily for 2 weeks. Pt denies history of seizures. He is receiving a 5 day Ativan and 5 day Subutex taper, currently on day 4/5 and tolerating well. Per endorsement, pt did not receive or request PRN medications, and is compliant with care. Pt is alert and oriented x4, breathing is even and unlabored. Safety measures in place. Will continue to monitor.
[2017-02-23 20:00] VITALS: BP 119/72
[2017-02-23] MEDS: QUETIAPINE FUMARATE 100 MG TABLET PO SCH (22:20)
[2017-02-24] VITALS: BP 108/69
[2017-02-24] MEDS ORDERED: BUPRENORPHINE HCL 2 MG TAB.SUBL SL SCH (09:00)
[2017-02-24] MEDS: buPROPion SR 100 MG TABLET.SA PO SCH (09:00)
[2017-02-24] MEDS: CITALOPRAM 20 MG TABLET PO SCH (09:00)
[2017-02-24] MEDS: GABAPENTIN 300 MG CAPSULE PO SCH ×3 (09:00→22:47)
[2017-02-24] MEDS: BACLOFEN 20 MG TABLET PO SCH ×3 (09:00→22:49)
[2017-02-24] MEDS: CLONIDINE HCL 0.1 MG TABLET PO SCH ×3 (09:00→22:48)
[2017-02-24] MEDS ORDERED: LORAZEPAM 1 MG TABLET PO SCH (09:00)
--- NOTE | 2017-02-24 12:01 | NUR ---
0900 MEDICATION ADMINISTRATION all scheduled 0900 medications were administered as ordered, per [facility] downtime. refer to paper MAR record.
[2017-02-24 13:16] VITALS: BP 119/69
[2017-02-24 14:45] VITALS: BP 122/74
[2017-02-24 17:00] VITALS: BP 119/66
--- NOTE | 2017-02-24 19:14 | NUR ---
END OF SHIFT Patient alert and oriented x4, vital signs were stable during shift. Patient compliant with therapeutic plan of care. Patients continues under close observation. patient with admitting Dx: opiate/bzo dependence. currently with ongoing taper of Ativan/ Subutex 5 day, currently on day 5 of taper, well tolerated, no ASE noted, continues under close observation. 0900 assessment patient presented with: mild anxiety, mild bone and joints chest, c/o chills, moist eyes, yawning with cow score of: 5 and ciwa score of: 2; 1300 assessment patient presented with: heart rate of 84, c/o chills, mild bone and joint aches, tremors that can be felt but not seen, mild anxiety, and barely sweating with cow score of: 5 and ciwa score of: 3; 1700 assessment patient presented with: heart rate of 88, c/o chills, mild bone and joint aches, tremors that can be felt but not seen, mild anxiety, and barely sweating with cow score of: 5 and ciwa score of: 3 Patient encouraged adequate PO fluid intake as tolerated. received no PRN medications during shift. Patient encouraged to attend group therapies/sessions to learn new coping skills to prevent relapse, noted attending and participating. Denies SI/HI. safety measures in place. call light kept with in reach, patient endorsed to mold shifter nurse, all pertinent information discussed. will continue to monitor.
--- NOTE | 2017-02-24 19:15 | NUR ---
START OF SHIFT Received 26 year old male patient admitted on 02/20/17 for Opiate and Benzodiazepine dependency. Pt is full code with allergy to ceclor. He reports a PMHx of anxiety, depression, insomnia and left shoulder surgery. Pt reports using Heroin less than gram daily for 2 weeks. Last dose was gram on 02/19/17. And Xanax of unknown amount daily for 2 weeks. He was receiving a 5 day Ativan and 5 day Subutex taper and tolerating well. Per endorsement, pt did not receive or request PRN medications, and is scheduled to be DC tomorrow. Pt is alert and oriented x4, breathing is even and unlabored. Safety measures in place. Will continue to monitor.
[2017-02-24 20:00] VITALS: BP 127/82
[2017-02-24] MEDS: QUETIAPINE FUMARATE 100 MG TABLET PO SCH (22:48)
--- NOTE | 2017-02-24 22:49 | NUR ---
LATE MEDICATION ADMINISTRATION Pt's routine medications were administered at this time per pt request. Safety measures in place. Will monitor.
--- NOTE | 2017-02-25 | NUR ---
VITALS REFUSED, COWS/CIWA DEFERRED 0000 vitals refused. COWS and CIWA deferred d/t pt lying in bed with eyes closed noted to be asleep. Respirations 16, breathing even and unlabored. Safety measures in place. Will monitor.
[2017-02-25] MEDS ORDERED: BACL20TA PO (01:45)
[2017-02-25] MEDS ORDERED: IBUP-1955 PO (01:45)
[2017-02-25] MEDS ORDERED: CITA20TA19 PO (01:45)
[2017-02-25] MEDS ORDERED: DICY20TA28 PO (01:45)
[2017-02-25] MEDS ORDERED: GABA-534 PO (01:45)
[2017-02-25] MEDS ORDERED: CLON0.1T14 PO (01:45)
[2017-02-25] MEDS ORDERED: HYDR-3895 PO (01:45)
--- NOTE | 2017-02-25 07:24 | NUR ---
END OF SHIFT Pt is a 26 year old male patient admitted on 02/20/17 for Opiate and Benzodiazepine dependency. Pt is full code with allergy to ceclor. He reports a PMHx of anxiety, depression, insomnia and left shoulder surgery. He completed his 5 day Ativan and Subutex taper and is scheduled to be DC today to [facility]. He did not receive or request PRN medications. He slept a total of 6hrs, Intake: 1151mL, Void: x2, BM:0, COWS: 5, CIWA:3. Pt remains alert and oriented x4, breathing is even and unlabored. Safety measures in place. Endorsed to oncoming shift.
--- NOTE | 2017-02-25 07:30 | NUR ---
start of shift note: received pt from night coordinator nurse, pt is in stable condition. pt is admitted to [facility] for opiate/benzo withdrawal/ dependence. pts last cows 5 and ciwa 3. pt tolerated taper well no a/r noted.pt is set to discharge today. will assist pt in discharging and will continue to monitor pt for any changes
[2017-02-25] MEDS: GABAPENTIN 300 MG CAPSULE PO SCH (09:36)
[2017-02-25 09:37] VITALS: BP 111/71
[2017-02-25] MEDS: buPROPion SR 100 MG TABLET.SA PO SCH (09:37)
[2017-02-25] MEDS: CITALOPRAM 20 MG TABLET PO SCH (09:37)
[2017-02-25] MEDS: CLONIDINE HCL 0.1 MG TABLET PO SCH (09:37)
[2017-02-25] MEDS: BACLOFEN 20 MG TABLET PO SCH (09:37)
--- NOTE | 2017-02-25 09:50 | NUR ---
discharge note: pt left the unit in stable condition no s/s of pain or discomfort or any withdrawal symptoms. pt teaching administered and pt verbalized understanding. all personal belongings were given back. pt's V/S WNL. pt will be transferred to able to change via private car
== END 2017-02-25 09:50 | disposition other institution (70) | DRG 895 ==
LOC: SRC 16:54
PROVIDERS: ADMIT Internal Medicine; ATTEND Internal Medicine
PROC: HZ2ZZZZ Detoxification Services for Substance Abuse Treatment (ICD-10-PCS; principal; 2017-02-20)
PROC: HZ41ZZZ Group Counseling for Substance Abuse Treatment, Behavioral (ICD-10-PCS; 2017-02-21)
DX: F11.23 Opioid dependence with withdrawal (principal); F33.2 Major depressive disorder, recurrent severe without psychotic features; F13.230 Sedative, hypnotic or anxiolytic dependence with withdrawal, uncomplicated; F41.9 Anxiety disorder, unspecified; Z79.899 Other long term (current) drug therapy; Z80.9 Family history of malignant neoplasm, unspecified; Z81.1 Family history of alcohol abuse and dependence; Z81.3 Family history of other psychoactive substance abuse and dependence; Z86.69 Personal history of other diseases of the nervous system and sense organs; G47.00 Insomnia, unspecified; F17.210 Nicotine dependence, cigarettes, uncomplicated
CPT/HCPCS: 36415; 70030-TC; 80307; 80361; 83735; 85025; 86580; 86592; 86705; 86803; 87340; 87806; A4663; G0480; J2405; Q0162; Q0163